=== PATIENT | female | born 1960 | race Caucasian/White ===

== ENCOUNTER 2017-11-01 17:06 | Emergency (ER) | payer MEDICAID ==
[~2017-11-01] VITALS: Ht 167.6 cm; Wt 61.4 kg
[2017-11-01 17:19] VITALS: BP 121/69
== END 2017-11-01 20:08 | disposition home or self-care (01) ==
LOC: ED 20:00
DX: M77.9 Enthesopathy, unspecified (principal); M06.9 Rheumatoid arthritis, unspecified; F17.210 Nicotine dependence, cigarettes, uncomplicated
CPT/HCPCS: 29125; 99284

== ENCOUNTER → 2018-01-09 | Outpatient (CLI) | payer MEDICAID | END | disposition home or self-care (01) | LOC: CFH 10:15 | PROVIDERS: ATTEND Family Medicine | DX: Z12.31 Encounter for screening mammogram for malignant neoplasm of breast (principal); N63.41 Unspecified lump in right breast, subareolar | CPT/HCPCS: 77063; 77067 ==

== ENCOUNTER → 2018-01-25 | Outpatient (CLI) | payer MEDICAID | LOC: CFH 14:30 | PROVIDERS: ATTEND Family Medicine | DX: N60.01 Solitary cyst of right breast (principal); Z80.3 Family history of malignant neoplasm of breast | CPT/HCPCS: 77065 ==